=== PATIENT | female | born 1970 | race Two or more races ===

== ENCOUNTER 2020-04-07 14:34 | Outpatient (CLI) | payer OTHER | END 2020-04-07 14:46 | disposition home or self-care (01) | LOC: RAD 14:34 | PROVIDERS: ATTEND Urology | DX: N20.0 Calculus of kidney (principal) ==

== ENCOUNTER 2020-05-16 10:13 | Outpatient (CLI) | payer OTHER | END 2020-05-16 10:20 | disposition home or self-care (01) | LOC: LAB 10:13 | PROVIDERS: ATTEND Urology | DX: N39.0 Urinary tract infection, site not specified (principal) ==